=== PATIENT | female | born 2000 | race Caucasian/White ===

== ENCOUNTER 2022-05-12 11:35 | Emergency (ER) | payer OTHER ==
[~2022-05-12] VITALS: Ht 162.6 cm; Wt 108.9 kg
[2022-05-12 11:57] VITALS: BP 122/80
[2022-05-12] MEDS ORDERED: KETOROLAC 30 MG/ML VIAL IM ONE (13:00)
[2022-05-12] MEDS ORDERED: CYCLOBENZAPRINE 10 MG TAB PO ONE (13:00)
[2022-05-12] MEDS ORDERED: METH-1681 PO (13:26)
[2022-05-12] MEDS ORDERED: IBUP-2213 PO (13:26)
[2022-05-12 13:57] VITALS: BP 122/80
--- NOTE | 2022-05-12 13:57 | NUR ---
Patient discharged with v/s stable. Written and verbal after care instructions given and explained. Patient alert, oriented and verbalized understanding of instructions. Ambulatory with steady gait. All questions addressed prior to discharge. ID band removed. Patient advised to follow up with PMD. Rx of ibuprofen, robaxin (sent) given. Patient educated on indication of medication including possible reaction and side effects. Opportunity to ask questions provided and answered. dx by jesus shen
== END 2022-05-12 13:57 | disposition home or self-care (01) ==
LOC: MED 11:35
DX: M54.9 Dorsalgia, unspecified (principal); M79.10 Myalgia, unspecified site; Z79.899 Other long term (current) drug therapy
CPT/HCPCS: 81025; 96372; 99283; J1885; 81002

== ENCOUNTER 2022-06-14 12:00 | Emergency (ER) | payer OTHER ==
[~2022-06-14] VITALS: Ht 162.6 cm; Wt 110.2 kg
[~2022-06-14 12:00] MED LIST: IBUP-2213 PO; METH-1681 PO
[2022-06-14 12:11] VITALS: BP 134/77
[2022-06-14] MEDS ORDERED: LIDOCAINE MPF 1% 10 MG/ML VIAL INJ ONE (13:15)
--- NOTE | 2022-06-14 13:30 | NUR ---
PT AMBULATED TO BED 4
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
[2022-06-14] MEDS ORDERED: BACITRACIN OINT 500 UNITS/GM PKT TP ONE (14:10)
[2022-06-14] MEDS ORDERED: CEPH-588 PO (14:11)
[2022-06-14] MEDS ORDERED: IBUP-2213 PO (14:11)
[2022-06-14] MEDS ORDERED: BACI-416 TP (14:11)
--- NOTE | 2022-06-14 14:20 | NUR ---
pt l big toe irrigated with normal saline & non adherent applied. + cms
--- NOTE | 2022-06-14 14:26 | NUR ---
The patient's care was reviewed and supervised by Tennille Alvarez RN.
== END 2022-06-14 14:25 | disposition home or self-care (01) ==
LOC: MED 12:00
DX: S90.32XA Contusion of left foot, initial encounter (principal); X58.XXXA Exposure to other specified factors, initial encounter; Y93.89 Activity, other specified; Y92.89 Other specified places as the place of occurrence of the external cause; Y99.8 Other external cause status
CPT/HCPCS: 11730; 73660; 99284; J2001

== ENCOUNTER 2023-04-26 08:52 | Emergency (ER) | payer OTHER ==
[~2023-04-26] VITALS: Ht 157.5 cm; Wt 90.7 kg
[~2023-04-26 08:52] MED LIST changes: +BACI-418 TP; +CEPH-588 PO
[2023-04-26 09:14] VITALS: BP 126/78; PULSE 89; RESP 18; TEMP 98; O2SAT 98
[2023-04-26] MEDS ORDERED: KETOROLAC 30 MG/ML VIAL IM ONE (10:00)
[2023-04-26] MEDS ORDERED: LIDOCAINE 5% 1 EA PATCH TP ONE (10:00)
[2023-04-26 10:59] VITALS: BP 125/70; PULSE 89; RESP 16; TEMP 98; O2SAT 99
== END 2023-04-26 10:59 | disposition home or self-care (01) ==
LOC: MED 08:52
DX: S80.212A Abrasion, left knee, initial encounter (principal); S80.211A Abrasion, right knee, initial encounter; S50.311A Abrasion of right elbow, initial encounter; Z79.899 Other long term (current) drug therapy; Z79.1 Long term (current) use of non-steroidal anti-inflammatories (NSAID); Z79.2 Long term (current) use of antibiotics; V49.9XXA Car occupant (driver) (passenger) injured in unspecified traffic accident, initial encounter; Y93.89 Activity, other specified; Y92.410 Unspecified street and highway as the place of occurrence of the external cause; Y99.8 Other external cause status
CPT/HCPCS: 73080; 73562; 81002; 81025; 96372; 99284; J1885